=== PATIENT | male | born 1970 | race Caucasian/White ===

== ENCOUNTER 2018-05-06 19:18 | Observation (INO) ==
[2018-05-06] MEDS ORDERED: Ketorolac 30 MG/ML VIAL IVP ONE (20:16)
[2018-05-06] MEDS ORDERED: Azithromycin 500 MG in D5% in Water 250 ML IVPB ONE (20:16)
[2018-05-06] MEDS ORDERED: Ipratropium/Albuterol Neb 3 ML IH ONE (20:17)
--- NOTE | 2018-05-06 20:19 | Emergency Department Note ---
Disposition Clinical Impression: Pneumonia Qualifiers: Pneumonia type: due to unspecified organism Laterality: bilateral Lung location: lower lobe of lung Qualified Code(s): J18.1 - Lobar pneumonia, unspecified organism Disposition: Admitted As Inpatient Condition: Fair Referrals: Bryson Levin CNP [Primary Care Provider] - Forms: ED Satisfaction Letter Time of Disposition: 21:37 URI/Sore Throat HPI - General Chief Complaint: ED Upper Respiratory Infection Stated Complaint: cough and congestion Time Seen by Provider: 05/06/18 19:30 Source: patient, family Mode of arrival: private vehicle Limitations: no limitations Nursing Notes Reviewed: Yes Vital Signs Reviewed: Yes - History of Present Illness Pt Subjective Complaint: fever, cough, nasal congestion, sinus pain Onset (ago): day(s) (This is the third day) Duration: constant Severity: severe Improves with: nothing Worsens with: exertion If sputum, description: yellow, green Context: sick contacts Associated symptoms: Reports: fever, chills, myalgias, nasal congestion, cough, shortness of breath (Shortness of breath is severe enough that he cannot walk from one room to the next in his house without getting pretty short of breath.) Treatments prior to arrival: none - Related Data Home Medications Medication Instructions Recorded Confirmed Cilostazol [Pletal] 100 mg PO BID 03/26/16 05/06/18 FLUoxetine HCl [PROzac] 20 mg PO DAILY 12/18/16 05/06/18 Rivaroxaban [Xarelto] 20 mg PO DAILY 12/18/16 05/06/18 ALPRAZolam [Xanax 0.5 MG Tablet] 1 mg PO TID 05/06/18 05/06/18 Warfarin [Coumadin] 5 mg PO 1800 05/06/18 05/06/18 Allergies Allergy/AdvReac Type Severity Reaction Status Date / Time propoxyphene Allergy Hives Verified 06/21/17 06:14 [From [facility]] All systems ED: reviewed and negative except as stated. Constitutional: Reports: fever, chills ENT ED: Reports: congestion. Denies: ear pain, throat pain Cardiovascular: Reports: chest pain (Sore from coughing). Denies: palpitations Respiratory: Reports: cough, dyspnea, wheezes, sputum production Gastrointestinal: Denies: abdominal pain, vomiting, diarrhea Integumentary: Denies: rash Neurological: Reports: headache URI PMH - Past Medical History Medical history: Reports: coronary artery disease, kidney stones, myocardial in farction, peripheral artery disease, other Surgical history: Reports: cholecystectomy Psychiatric history: Reports: anxiety, panic disorder - Social History Smoking Status: Current every day smoker Alcohol use: Reports: occasionally Drug use: Reports: marijuana Physical Exam - General Limitations: no limitations General appearance: alert, in no apparent distress - Head Head exam: atraumatic, normocephalic, normal inspection - Eye Eye exam: Present: normal appearance, PERRL, EOMI. Absent: scleral icterus, conjunctival injection - ENT ENT exam: normal exam, normal oropharynx, mucous membranes moist, TM's normal bilaterally, normal external ear exam - Neck Neck exam: Present: normal inspection, full ROM, trachea midline - Chest Chest inspection: Present: normal inspection, symmetric chest wall rise. Absent: tenderness - Respiratory Respiratory exam: Present: wheezes, other (Course breath sounds on the right.). Absent: respiratory distress - Cardiovascular Cardiovascular exam: Present: normal rhythm, tachycardia, normal heart sounds - Abdominal Exam Abdominal exam: Present: soft, Non-Tender, normal bowel sounds - Extremities Exam Extremities exam: Present: normal inspection. Absent: pedal edema - Neurological Exam Neurological exam: Present: alert, oriented X3 - Psychiatric Psychiatric exam: Present: normal affect, normal mood - Skin Skin exam: Present: warm, dry. Absent: rash Course Course Narrative: Patient presents with symptoms consistent with rest or infection. Discussed sinus congestion and drainage with a cough and a lot of shortness of breath. Flu is possible but pneumonia is also possible. We have ordered a flu swab and a chest x-ray. Disposition will be based on diagnostic results and reevaluation. - Reevaluation(s) Reevaluation #1: Flu swab was negative but the chest x-ray shows right-sided pneumonia. Patient also had a low O2 sat in triage at 88%. He describes shortness of breath that makes it hard for him to walk through his own house. He needs to be admitted for hypoxia secondary to this pneumonia. I ordered labs now and putting an IV in him to get him some fluids and IV antibiotics. I will talk to the hospitalist once his lab results come back. Time: 20:21 Reevaluation #2: Labs are back and they look good. I already spoke to the hospitalist and he is accepted the patient for admission to the hospital. Time: 21:36 Vital Signs Temperature 100.5 F H 05/06/18 19:22 Pulse Rate 106 05/06/18 19:22 Respiratory Rate 18 05/06/18 19:22 Blood Pressure 118/59 05/06/18 19:22 O2 Sat by Pulse Oximetry 90 05/06/18 19:22 Temperature 100.5 F H 05/06/18 19:22 Pulse Rate 91 05/06/18 21:34 Respiratory Rate 18 05/06/18 21:34 Blood Pressure 104/64 05/06/18 21:34 O2 Sat by Pulse Oximetry 92 05/06/18 21:34 Oxygen Delivery Oxygen Delivery Nasal Cannula Upper Respiratory Infection - Lab Data Lab results reviewed: Yes I reviewed the patient's lab results. Result diagrams: 05/06/18 20:39 05/06/18 20:39 Lab Results 05/06/18 05/06/18 05/06/18 Range/Units 20:39 20:39 20:39 WBC 9.1 (4.3-11.1) K/mcL RBC 4.06 L (4.19-5.50) M/mcL Hgb 12.0 L (12.9-16.9) g/dL Hct 37.0 L (37.5-50.1) % MCV 91.1 (83.0-100.0) fL MCH 29.6 (28.0-33.3) pg MCHC 32.4 (31.6-35.5) g/dL RDW 13.0 (11.5-14.5) % Plt Count 335 (140-400) K/mcL MPV 8.9 L (9.4-12.4) fL Immature Gran % 0.3 (0-4) % Seg Neutrophils % 82.7 % Lymphocytes % 9.6 % Monocytes % 7.3 % Eosinophils % 0.0 % Basophils % 0.1 % Neutrophils # 7.5 (1.6-8.9) K/mcL Lymphocytes # 0.9 (0.6-4.6) K/mcL Monocytes # 0.7 (0.0-1.3) K/mcL Eosinophils # 0.0 (0.0-0.6) K/mcL Basophils # 0.0 (0.0-0.2) K/mcL PT 21.0 H (9.4-12.1) Seconds INR 1.9 Sodium 136 (136-145) mEq/L Potassium 4.5 (3.5-5.1) mEq/L Chloride 98 (98-107) mEq/L Carbon Dioxide 30 H (23-29) mEq/L BUN 23 H (6-20) mg/dL Creatinine 1.07 (0.70-1.30) mg/dL Est GFR ( Amer) > 60 (> 60) Est GFR (Non-Af Amer) > 60 (> 60) BUN/Creatinine Ratio 21 (6-26) Glucose 114 H (70-105) mg/dL Calculated Osmolality 287 (280-300) Lactic Acid (0.5-2.2) mmol/L Calcium 8.5 L (8.6-10.3) mg/dL 05/06/18 Range/Units 20:39 WBC (4.3-11.1) K/mcL RBC (4.19-5.50) M/mcL Hgb (12.9-16.9) g/dL Hct (37.5-50.1) % MCV (83.0-100.0) fL MCH (28.0-33.3) pg MCHC (31.6-35.5) g/dL RDW (11.5-14.5) % Plt Count (140-400) K/mcL MPV (9.4-12.4) fL Immature Gran % (0-4) % Seg Neutrophils % % Lymphocytes % % Monocytes % % Eosinophils % % Basophils % % Neutrophils # (1.6-8.9) K/mcL Lymphocytes # (0.6-4.6) K/mcL Monocytes # (0.0-1.3) K/mcL Eosinophils # (0.0-0.6) K/mcL Basophils # (0.0-0.2) K/mcL PT (9.4-12.1) Seconds INR Sodium (136-145) mEq/L Potassium (3.5-5.1) mEq/L Chloride (98-107) mEq/L Carbon Dioxide (23-29) mEq/L BUN (6-20) mg/dL Creatinine (0.70-1.30) mg/dL Est GFR ( Amer) (> 60) Est GFR (Non-Af Amer) (> 60) BUN/Creatinine Ratio (6-26) Glucose (70-105) mg/dL Calculated Osmolality (280-300) Lactic Acid 1.0 (0.5-2.2) mmol/L Calcium (8.6-10.3) mg/dL - Radiology Data Radiology results reviewed: Yes I reviewed the patient's radiology results.
[2018-05-06] MEDS: 0.9 % Sodium Chloride 1,000 ML IVC SCH ×3 (20:32→23:30)
[2018-05-06 20:47] LABS: Basophils % 0.1 %; Immature Granulocytes % 0.3 % (0-4); Lymphocytes # 0.9 K/mcL (0.6-4.6); Lymphocytes % 9.6 %; Mean Corpuscular HGB Conc 32.4 g/dL (31.6-35.5); Mean Corpuscular Hemoglobin 29.6 pg (28.0-33.3); Mean Corpuscular Volume 91.1 fL (83.0-100.0); Mean Platelet Volume 8.9 fL (9.4-12.4); Monocytes # 0.7 K/mcL (0.0-1.3); Monocytes % 7.3 %; Neutrophils # 7.5 K/mcL (1.6-8.9); Platelet Count 335 K/mcL (140-400); Red Blood Count 4.06 M/mcL (4.19-5.50); Segmented Neutrophils % 82.7 %
[2018-05-06 20:53] LABS: INR 1.9
[2018-05-06 21:05] LABS: BUN/Creatinine Ratio 21 (6-26); Blood Urea Nitrogen 23 mg/dL (6-20); Calcium 8.5 mg/dL (8.6-10.3); Carbon Dioxide 30 mEq/L (23-29); Chloride 98 mEq/L (98-107); Glucose 114 mg/dL (70-105); Osmolality,Calculated 287 (280-300); Potassium 4.5 mEq/L (3.5-5.1); Sodium 136 mEq/L (136-145); eGFR For Non-African Americans > 60 (> 60)
[2018-05-06] MEDS ORDERED: Acetaminophen 325 MG TABLET PO PRN (22:58)
[2018-05-06] MEDS ORDERED: Naloxone 0.4 MG/ML INJ IVP PRN (22:58)
[2018-05-07] MEDS: Ipratropium/Albuterol Neb 3 ML IH SCH ×4 (00:34→12:36)
[2018-05-07] MEDS: ALPRAZolam 0.5 MG TABLET PO SCH ×2 (08:16→14:09)
[2018-05-07] MEDS: 0.9 % Sodium Chloride 1,000 ML IVC SCH (08:16)
[2018-05-07] MEDS ORDERED: FLUoxetine 20 MG CAPSULE PO SCH (09:00)
[2018-05-07] MEDS ORDERED: traMADol 50 MG TABLET PO ONE (09:53)
[2018-05-07] MEDS ORDERED: Benzonatate 100 MG CAPSULE PO PRN (09:56)
[2018-05-07 11:29] VITALS: BP 104/62
--- NOTE | 2018-05-07 14:16 | Internal Med History&Physical ---
Date of Encounter: 05/07/18 Time of Encounter: 12:30 Assessment and Plan (1) Pneumonia Current visit: Yes Status: Acute He was given Rocephin and Zithromax in emergency room. Chest CT will be done to further evaluate. 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 Qualifiers: Encounter type: sequela Qualified Code(s): T82.898S - Other specified complication of vascular prosthetic devices, implants and grafts, sequela (3) Anemia Current visit: Yes Status: Acute Present intermittently since April 2014. Qualifiers: Anemia type: unspecified type Qualified Code(s): D64.9 - Anemia, unspecified Internal Medicine - H&P: HPI Chief complaint: Cough and dyspnea Admitted From: Emergency Dept Plans for Post Hospital Care: Home History of present illness: Mr. Bond is a 47 year old male who came to emergency room stating he had 3 day history of cough with dyspnea. He reports the cough is productive of yellow- green sputum. He denies hemoptysis. He was evaluated in emergency room and found to have bilateral pneumonia on chest x-ray. He was [facility] floor for ongoing care needs. Respiratory history is significant for having smoked since age 39 up to 2 packs per day. He has not had PFTs and does not have documented COPD. He has not been tested for sleep apnea. He has had minimal fevers and chills associated with present illness. Past Med Surg Social Fam HX - Past Medical History Medical history: coronary artery disease, kidney stones, myocardial infarction, peripheral artery disease, other Additional medical history: CA 22 years ago at age 25 Psychiatric history: anxiety, panic disorder - Past Surgical History Surgical History: cholecystectomy Additional surgical history: T&A. Partial colon removed. PAD, 3 different grafts to left leg 2016. - Social History Smoking Status: Current every day smoker Smokeless Tobacco Status: No Alcohol use: occasionally Drug use: marijuana - Family History Father Hx Family Cancer: Yes Hx Family Endocrine Disorder: Yes Internal Medicine - H&P: Meds Cilostazol [Pletal] 100 mg PO BID 03/26/16 [History] FLUoxetine HCl [PROzac] 20 mg PO DAILY 12/18/16 [History] ALPRAZolam [Xanax 0.5 MG Tablet] 1 mg PO TID 05/06/18 [History] Warfarin [Coumadin] 5 mg PO 1800 05/06/18 [History] Allergy/AdvReac Type Severity Reaction Status Date / Time propoxyphene Allergy Hives Verified 06/21/17 06:14 [From Darvocet-N] All Systems PM: A 10-system review of systems was performed and is negative for pertinent findings except as documented above in the HPI. Review of systems: Gen.: He states his weight has been stable for several months Cardiovascular: He denies hypertension. He reports having an CA at age 25 from coronary spasm. He denies chest pain on routine exertion. He denies heart failure DVT or pulmonary embolus. He has had left leg peripheral artery disease and is on lifelong Coumadin for significant thrombosis. He reports 3 surgeries (? thrombectomy) in the left leg. Respiratory: As per history of present illness GI: He has had cholecystectomy. He denies disorders of his liver or exocrine pancreas. He occasionally has dark stools which he attributes to consumption of chocolate drink. : He has BPH. He denies other kidney or bladder disorders. Neurologic: He denies large distribution strokes or seizures. Endocrine: He denies diabetes thyroid disease or hyperlipidemia Hematology/oncology: He was unaware he was anemic on labs in emergency room and multiple previous labs. He denies blood disorders or internal malignancies. Psychiatric: He has anxiety depression but denies other mental health diagnoses. [place] skeletal: He has pain in his left leg. He denies gout or other bone joint or muscle disorders. - Constitutional Vitals: Temp Pulse Resp BP Pulse Ox 97.5 F L 69 16 104/62 98 05/07/18 10:52 05/07/18 10:52 05/07/18 10:52 05/07/18 10:52 05/07/18 10:52 Exam: Gen.: He is well-developed overweight male who appears slightly dyspneic at rest HEENT: Head is atraumatic and normocephalic. Eyes: EOMI. There is no scleral icterus. Mouth: Mucosa is moist. Neck: Supple and nontender. There is no thyromegaly or adenopathy noted. Heart: Regular without murmurs gallops or ectopics Lungs: He has a few scattered rhonchi. No wheezing is heard. Abdomen: Soft and nontender. He has well-healed longitudinal midline epigastric scar. No masses or guarding are noted. Extremities: There is no cyanosis edema or clubbing noted. Dorsalis pedis and posterior tibial pulses are 1-2 over 2 bilaterally. Neurologic: Mental status: He is talkative and a good historian. Cranial nerves: Smile is symmetric. Forehead wrinkles bilaterally. Tongue protrudes midline. EOMI. Motor: There is no pronator drift. Cerebellar: Finger to nose is intact bilaterally. Skin: Warm and dry Internal Med - H&P Results - Labs CBC & Chem 7: 05/06/18 20:39 05/06/18 20:39 Labs: Short CBC 05/06/18 Range/Units 20:39 WBC 9.1 (4.3-11.1) K/mcL Hgb 12.0 L (12.9-16.9) g/dL Hct 37.0 L (37.5-50.1) % Plt Count 335 (140-400) K/mcL Neutrophils # 7.5 (1.6-8.9) K/mcL BMP 05/06/18 20:39 Sodium 136 Potassium 4.5 Chloride 98 Carbon Dioxide 30 H BUN 23 H Creatinine 1.07 Glucose 114 H Calcium 8.5 L - Impressions ITS Impressions Chest X-Ray 05/06/18 19:31 IMPRESSION: Patchy right greater than left airspace disease consistent with pneumonia. D/ / Grzegorz Funez MD / Grzegorz Funez MD Interpreting Provider: Grzegorz Funez MD Chest CT 05/07/18 12:53 IMPRESSION: Extensive bilateral airspace disease with mediastinal lymphadenopathy and mild hilar lymphadenopathy most consistent with an inflammatory infectious process. Follow-up radiographs are recommended to document resolution of disease. D/ / 05/07/2018 14:01:21 Tyson Lau MD / lucas Interpreting Provider: Tyson Lau MD
--- NOTE | 2018-05-07 14:51 | Discharge Summary ---
Orders not resulted at time of discharge: Pending orders 05/06/18 20:39 Culture,Blood [BC] Stat Date of Encounter: 05/07/18 Time of Encounter: 14:44 - Discharge Diagnosis (1) Pneumonia Priority: Primary Status: Acute Qualifiers: Pneumonia type: due to unspecified organism Laterality: bilateral Lung location: lower lobe of lung Qualified Code(s): J18.1 - Lobar pneumonia, unspecified organism (2) Occlusion of arterial bypass graft Priority: Secondary Status: Chronic Qualifiers: Encounter type: sequela Qualified Code(s): T82.898S - Other specified complication of vascular prosthetic devices, implants and grafts, sequela (3) Anemia Priority: Secondary Status: Acute Qualifiers: Anemia type: unspecified type Qualified Code(s): D64.9 - Anemia, unspecified Hospital course: Mr. Bond is a 47 year old male who came to emergency room stating he had 3 day history of cough with dyspnea. He reports the cough is productive of yellow- green sputum. He denies hemoptysis. He was evaluated in emergency room and found to have bilateral pneumonia on chest x-ray. He was admitted to [facility] floor for ongoing care needs. Initial orders were written by the emergency room physician. I saw him on May 07 and performed a history and physical. He was started on Rocephin and Zithromax in emergency room. I ordered chest CT to further evaluate. Chest CT showed extensive bilateral airspace disease with mediastinal lymphadenopathy and mild hilar lymphadenopathy most consistent with inflammatory/infectious process. Follow-up radiographs were recommended to document resolution disease. His PCP can order a follow-up chest CT in a few weeks. When I saw him the afternoon of May 07 he stated he felt improved and wished to be discharged home. Room air oximetry on 6 minute walk did not show need for supplemental oxygen. He will continue with antibiotic and probiotic for 5 additional days at home. I encouraged him to become a nonsmoker. Anemia workup was not done during hospitalization but can be done by his PCP as an outpatient. - Time Spent with Patient Total time spent providing and/or coordinating discharge services: - Discharge Medications Prescriptions: New Lactobacillus [Culturelle] 1 each PO BID #10 cap.sprink levoFLOXacin [Levaquin] 750 mg PO DAILY #5 tablet Continue Cilostazol [Pletal] 100 mg PO BID FLUoxetine HCl [Prozac] 20 mg PO DAILY Warfarin [Coumadin] 5 mg PO 1800 ALPRAZolam [Xanax 0.5 MG Tablet] 1 mg PO TID Home Medications: Cilostazol [Pletal] 100 mg PO BID 03/26/16 [History] FLUoxetine HCl [Prozac] 20 mg PO DAILY 12/18/16 [History] ALPRAZolam [Xanax 0.5 MG Tablet] 1 mg PO TID 05/06/18 [History] Warfarin [Coumadin] 5 mg PO 1800 05/06/18 [History] Lactobacillus [Culturelle] 1 each PO BID #10 cap.sprink 05/07/18 [Rx] levoFLOXacin [Levaquin] 750 mg PO DAILY #5 tablet 05/07/18 [Rx] Allergies/Adverse Reactions: 3 Allergy/AdvReac Type Severity Reaction Status Date / Time propoxyphene Allergy Hives Verified 06/21/17 06:14 [From [facility]] Date of admission: 05/06/18 21:45 Primary care physician: Bryson Levin CNP - Constitutional Vitals: Temp Pulse Resp BP Pulse Ox 97.5 F L 69 18 104/62 94 05/07/18 10:52 05/07/18 10:52 05/07/18 12:36 05/07/18 10:52 05/07/18 14:15 - Patient Status Disposition: Home, Self-Care Condition: Fair - Discharge Instructions Follow Up With: Bryson Levin CNP [Primary Care Provider] - 1 week - Diet and Activity Activity: resume usual activities as tolerated Diet: advance to your usual diet
[2018-05-07] MEDS ORDERED: *HR* Warfarin 5 MG TABLET PO SCH (18:00)
[2018-05-07] MEDS ORDERED: Azithromycin 500 MG in D5% in Water 250 ML IVPB SCH (18:00)
[2018-05-07] MEDS ORDERED: cefTRIAXone 1,000 MG in Water for inj. (sterile) 20 ML 10 ML IVPB SCH (18:00)
== END 2018-05-07 15:15 | disposition home or self-care (01) ==
LOC: EMEROOPIK 19:18 → INPPIK 19:18
PROVIDERS: ADMIT Internal Medicine; ATTEND Internal Medicine